=== PATIENT | female | born 1950 | race Caucasian/White ===

== ENCOUNTER 2018-06-22 10:50 | Emergency (ER) | payer MEDICARE ==
--- NOTE | 2018-06-22 11:23 | Emergency Department Record ---
History of Present Illness - General Chief Complaint: Fall Injury Stated Complaint: FALL Time Seen by Provider: 06/22/18 10:56 Source: Patient Mode of Arrival: Ambulatory Limitations: No limitations - History of Present Illness Initial Comments: The patient is here due to L rib pain. She slipped in the shower about 2 hours ago and landed on the edge of the tub injuring her L ribs. They have been painful since. She denies any anterior CP, SOB, AMBER, or AP and the patient is not on any blood thinners. MD Complaint: Fall Onset/Timin -: Hour(s) Fall From: Other When Fall Occurred: 1-3 hours [employer] Fall Witnessed: No Place Fall Occurred: Home Loss of Consciousness: None Prolonged Down Time?: No Symptoms Prior to Fall: None Location: Back, Abdomen Severity: Moderate Severity scale (1-10): 5 Quality: Aching Context: Tripped/slipped Associated Symptoms: Denies - Leighann Coma Scale Eye Response: (4) Open spontaneously Motor Response: (6) Obeys commands Verbal Response: (5) Oriented Leighann Total: 15 - Related Data Home Medications Medication Instructions Recorded Confirmed Last Taken Cholecalciferol (Vitamin D3) 5,000 unit PO DAILY 06/22/18 06/22/18 Unknown [Vitamin D3] Omeprazole 20 [id number] 06/22/18 06/22/18 06/22/18 Previous Rx's Medication Instructions Recorded Hydrocodone/Acetaminophen [[place] 1 - 2 each PO QID #12 tablet 06/22/18 5-325 Tablet] Allergies Allergy/AdvReac Type Severity Reaction Status Date / Time Anesthetics - Amide Type AdvReac VOMITING Verified 06/22/18 11:07 Anesthetics - Elvia Type- AdvReac VOMITING Verified 06/22/18 11:07 Parabens codeine AdvReac NAUSEA AND Verified 06/22/18 11:07 VOMITING Travel Screening - Travel/Exposure Within Last 30 Days Have you traveled within the last 30 days?: Yes [facility] Detail[facility] - Travel/Exposure Within Last Year Have you traveled outside the [place] in the last year?: No - Additonal Travel Details Have you been exposed to anyone with a communicable illness?: No - Travel Symptoms Symptom Screening: None Review of Systems Constitutional: Denies: Chills, Fever Eyes: Denies: Eye discharge ENT: Denies: Congestion Respiratory: Denies: Cough, Dyspnea Past Medical History - SOCIAL HISTORY Smoking Status: Never smoker Alcohol Use: Rare Drug Use: None - RESPIRATORY Hx Respiratory Disorders: No - CARDIOVASCULAR Hx Cardio Disorders: Yes Hx Hypertension: Yes - NEURO Hx Neuro Disorders: No - GI Hx GI Disorders: Yes Hx Reflux: Yes - Hx Genitourinary Disorders: No - ENDOCRINE Hx Endocrine Disorders: No - MUSCULOSKELETAL Hx Musculoskeletal Disorders: Yes Hx Arthritis: Yes - PSYCH Hx Psych Problems: No - HEMATOLOGY/ONCOLOGY Hx Hematology/Oncology Disorders: No Family Medical History Any Significant Family History?: Yes Hx Diabetes: Father, Brother/Sister Hx Heart Disease: Father, Brother/Sister Physical Exam - General General Appearance: Alert, Oriented x3, Cooperative, No acute distress - Head Head exam: Atraumatic, Normocephalic, Normal inspection - Eye Eye exam: Normal appearance, PERRL, EOMI - Neck Neck exam: Normal inspection, Full ROM. negative: Tenderness - Respiratory Respiratory exam: Normal lung sounds bilaterally, Chest wall tenderness (There is L lateral lower rib tenderness to palpation. There is no swelling, bruising, or erythema to indicate any severe trauma at the site.). negative: Respiratory distress - Cardiovascular Cardiovascular Exam: Regular rate, Normal rhythm, Normal heart sounds - GI/Abdominal GI/Abdominal exam: Soft, Normal bowel sounds. negative: Tenderness - Extremities Extremities exam: Normal inspection, Full ROM, Normal capillary refill. negative: Tenderness - Back Image of Body Front/Back: 1 - Area of pain and tenderness. - Neurological Neurological exam: Alert Course Vital Signs 06/22/18 10:55 Temperature 98.7 F Pulse Rate 77 Respiratory 20 Rate Blood Pressure 183/88 Pulse Ox 98 - Reevaluation(s) Reevaluation #1: The patient is doing well. I did discuss the rib fx's and the need for pain medicines and F/U. 06/22/18 12:04 Medical Decision Making - Data Complexity MDM Data: X-Ray Ordered and/or Reviewed - Radiology Data Radiology results: Report reviewed (L ribs: Nondisplaced fx L T6-7. ) Disposition Disposition: Discharge Clinical Impression: Rib fractures Qualifiers: Encounter type: initial encounter Rib fracture type: multiple ribs Fracture type: closed Laterality: left Qualified Code(s): S22.42XA - Multiple fractures of ribs, left side, initial encounter for closed fracture Disposition: Home, Self-Care Condition: (2) Stable Instructions: Rib Fracture (ED) Additional Instructions: Please take Tylenol or [place] for pain and please see your family doctor next week for recheck. Return to the ER for any worsening pain, fever, trouble breathing or coughing. Prescriptions: Hydrocodone/Acetaminophen [[place]field 5-325 Tablet] 1 - 2 each PO QID #12 tablet Forms: Patient Portal Access Time of Disposition: 12:06 Quality - Quality Measures Quality Measures: N/A - Blood Pressure Screening View Details: Yes Does Patient Have Any of the Following: No Blood Pressure Classification: Pre-Hypertensive BP Reading Systolic Measurement: 183 Diastolic Measurement: 88 Screening for High Blood Pressure: < Pre-Hypertensive BP, F/U Documented > [ [id number]] Pre-Hypertensive Follow-up Interventions: Referral to alternative/primary care provider.
--- NOTE | 2018-06-22 12:44 | RADIOLOGY REPORT ---
EXAM: LEFT RIBS WITH PA CHEST HISTORY: ACUTE LEFT POSTERIOR RIB PAIN STATUS POST FALL ONTO TUB EDGE. PAINFUL BREATHING. TECHNIQUE: A PA upright view of the chest and five views of the left ribs were obtained. Comparison: None. Encounter: Initial. FINDINGS: The heart, mediastinum, and pulmonary vasculature are normal. The lungs are clear. There is no pneumothorax or effusion. There are subtle nondisplaced fractures involving the posterolateral aspects of the left sixth and seventh ribs. The remaining osseous structures appear intact. IMPRESSION: 1. SUBTLE NONDISPLACED FRACTURES INVOLVING THE POSTEROLATERAL ASPECTS OF THE LEFT SIXTH AND SEVENTH RIBS. 2. NO ACUTE INTRATHORACIC PATHOLOGY. JOB NUMBER: [id number] [facility]
== END 2018-06-22 12:15 | disposition home or self-care (01) ==
LOC: ER 10:50
DX: S22.42XA Multiple fractures of ribs, left side, initial encounter for closed fracture (principal); M54.6 Pain in thoracic spine; I10 Essential (primary) hypertension; W18.2XXA Fall in (into) shower or empty bathtub, initial encounter; Y93.E1 Activity, personal bathing and showering; Y92.002 Bathroom of unspecified non-institutional (private) residence as the place of occurrence of the external cause
CPT/HCPCS: 94010; 99283; 99284

== ENCOUNTER 2019-03-02 10:15 | Emergency (ER) | payer MEDICARE ==
[2019-03-02] MEDS ORDERED: RANITIDINE HCL 150 MG TABLET PO STA (10:21)
[2019-03-02] MEDS ORDERED: METHYLPREDNISOLONE 80MG/VIAL IM ONE (10:21)
--- NOTE | 2019-03-02 10:28 | Emergency Department Record ---
History of Present Illness - General Chief complaint: Allergic Reaction Stated complaint: ALLERGIC REACTION Time Seen by Provider: 03/02/19 10:19 Source: Patient Mode of Arrival: Ambulatory Limitations: No limitations - History of Present Illness Initial Comments: 69 yo female presents with itchy eyes, lid puffiness, itchy rash to the face, and upper chest neck area since yesterday. She states she has had this before and thought it may be related to seasonal allergies. No cough, shortness of breath, lip, tongue, or throat swelling. No new medications. No nausea, vomiting or diarrhea. No new mediations, products, or foods that she is aware that she is allergic to. PCP is Dr Bergman. Complaint: Hives, Other -: Hour(s) (24) Exposure: Unknown Symptoms: Itching Severity: Mild Treatment Prior to Arrival: Benadryl Previous Allergy History: Other (similar) - Related Data Home Medications Medication Instructions Recorded Confirmed Last Taken Atorvastatin Calcium 20 mg PO DAILY 03/02/19 03/02/19 Unknown Ramipril 5 mg PO DAILY 03/02/19 03/02/19 Unknown Previous Rx's Medication Instructions Recorded Cetirizine HCl [Zyrtec] 10 mg PO DAILY #10 tablet 03/02/19 Methylprednisolone [Medrol Dose 4 mg PO DAILY #1 tab.ds.pk 03/02/19 Pack] Ranitidine HCl [Zantac] 150 mg PO BID #20 tablet 03/02/19 Allergies Allergy/AdvReac Type Severity Reaction Status Date / Time Anesthetics - Amide Type AdvReac VOMITING Verified 06/22/18 11:07 Anesthetics - Elvia Type- AdvReac VOMITING Verified 06/22/18 11:07 Parabens codeine AdvReac NAUSEA AND Verified 06/22/18 11:07 VOMITING Review of Systems Constitutional: Denies: Chills, Fever, Malaise, Weakness Eyes: Reports: Other (lid swelling, itchy eyes). Denies: Eye discharge, Eye pain, Photophobia, Vision change ENT: Denies: Congestion, Epistaxis, Throat pain Respiratory: Denies: Cough, Dyspnea, Hemoptysis, Wheezes Cardiovascular: Denies: Chest pain, Edema, Palpitations, Syncope Endocrine: Denies: Fatigue, Polydipsia, Polyuria Gastrointestinal: Denies: Abdominal pain, Diarrhea, Nausea, Vomiting Genitourinary: Denies: Dysuria, Urgency Musculoskeletal: Denies: Arthralgia, Back pain, Myalgia Skin: Reports: As per HPI, Change in color, Pruritus, Rash Neurological: Denies: Confusion, Headache, Numbness, Weakness Psychiatric: Denies: Anxiety Hematological/Lymphatic: Denies: Easy bleeding, Easy bruising Past Medical History - SOCIAL HISTORY Smoking Status: Never smoker Drug Use: None - RESPIRATORY Hx Respiratory Disorders: No - CARDIOVASCULAR Hx Cardio Disorders: Yes Hx Hypertension: Yes - NEURO Hx Neuro Disorders: No - GI Hx GI Disorders: Yes Hx Reflux: Yes - Hx Genitourinary Disorders: No - ENDOCRINE Hx Endocrine Disorders: No - MUSCULOSKELETAL Hx Musculoskeletal Disorders: Yes Hx Arthritis: Yes - PSYCH Hx Psych Problems: No - HEMATOLOGY/ONCOLOGY Hx Hematology/Oncology Disorders: No Family Medical History Hx Diabetes: Father, Brother/Sister Hx Heart Disease: Father, Brother/Sister Physical Exam - General General Appearance: Alert, Oriented x3, Cooperative, No acute distress Limitations: No limitations - Head Head exam: Atraumatic, Normal inspection - Eye Eye exam: Normal appearance, PERRL, Periorbital swelling (very slight). negative: Conjunctival injection, Scleral icterus Pupils: negative: Irregular, Unequal - ENT ENT exam: Normal exam, Mucous membranes moist, Normal orophraynx Ear exam: Normal external inspection Nasal Exam: Normal inspection Mouth exam: Normal external inspection Teeth exam: Normal inspection Throat exam: negative: Tonsillar erythema, Tonsillomegaly, Tonsillar exudate, R peritonsillar mass, L peritonsillar mass - Neck Neck exam: Normal inspection (rash). negative: Lymphadenopathy, Tenderness - Respiratory Respiratory exam: Normal lung sounds bilaterally. negative: Respiratory distress - Cardiovascular Cardiovascular Exam: Regular rate, Normal rhythm, Normal heart sounds - GI/Abdominal GI/Abdominal exam: Soft. negative: Tenderness - Rectal Rectal exam: Deferred - exam: Deferred - Extremities Extremities exam: Normal inspection. negative: Calf tenderness, Pedal edema, Tenderness - Back Back exam: Reports: Normal inspection (No rash). Denies: CVA tenderness (R), CVA tenderness (L) - Neurological Neurological exam: Alert, Oriented X3 - Psychiatric Psychiatric exam: Normal affect, Normal mood - Skin Skin exam: Erythema, Urticaria Course - Reevaluation(s) Reevaluation #1: 03/02/19 10:25 Mild rash to the face and neck No systemic or oral/throat symptoms No nausea, vomiting, shortness of breath 03/02/19 10:32 Vitals reviewed. Mild increase in BP otherwise no acute changes. 03/02/19 10:45 We discussed home care, reasons to return in the next 1-2 days and follow up with her PCP Disposition Disposition: Discharge Clinical Impression: Acute urticaria Disposition: Home, Self-Care Condition: (1) Good Instructions: Urticaria (ED) Additional Instructions: Call your doctor for the next available follow up appointment Return to the ER for a recheck if worse, any new concerns or questions Take the prescriptions provided as directed Take over the counter Benadryl every 4-6 hours today and possibly tomorrow to help with the itching and rash Prescriptions: Methylprednisolone [Medrol Dose Pack] 4 mg PO DAILY #1 tab.ds.pk Ranitidine HCl [Zantac] 150 mg PO BID #20 tablet Cetirizine HCl [Zyrtec] 10 mg PO DAILY #10 tablet Forms: Patient Portal Access Time of Disposition: 10:45 Quality - Quality Measures Quality Measures: N/A - Blood Pressure Screening Does Patient Have Any of the Following: Active Dx of HTN Blood Pressure Classification: Pre-Hypertensive BP Reading Systolic Measurement: 162 Diastolic Measurement: 85 Screening for High Blood Pressure: Patient Exclusion, Hx of HTN [G9744]
== END 2019-03-02 10:50 | disposition home or self-care (01) ==
LOC: ER 10:15
DX: L50.0 Allergic urticaria (principal); H05.223 Edema of bilateral orbit; I10 Essential (primary) hypertension
CPT/HCPCS: 96372; 99284; J1040